=== PATIENT | female | born 1955 | race Caucasian/White ===

== ENCOUNTER 2020-03-17 12:23 | Emergency (ER) | payer MEDICARE, SELFPAY ==
--- NOTE | ~2020-03-17 | CT_ITS ---
EXAMINATION: CT facial & cervical spine wo DATE: 03/17/2020 15:17 INDICATION: Head injury. TECHNIQUE: Computed tomography (CT) of the maxillofacial region and cervical spine was performed with out intravenous contrast. Automated exposure control and iterative reconstruction technique were empl oyed. The dose-length product was 375.30 mGy-cm. COMPARISON: Cervical spine CT 10/02/2012 FINDINGS: MAXILLOFACIAL CT: There is rightward deviation of the nasal septum. No fracture. There is mild mucosal thickening in ri ght maxillary sinus. CERVICAL SPINE CT: There is 4 degrees levocurvature of cervical spine. Vertebral body heights are normal. There is moder ately decreased disc height at C3-C4, severely decreased disc height at C4-C5 and C5-C6, and moderate ly decreased disc height at C6-C7. Again seen is heterogeneity of the thyroid, consistent with multin odular goiter. The following disc levels are specifically discussed: C2-C3: There is no uncovertebral joint osteoarthritis. There is mild right facet joint osteoarthritis . There is no neural foraminal stenosis. There is no central canal stenosis. C3-C4: There is severe right and moderate left uncovertebral joint osteoarthritis. There is severe bi lateral facet joint osteoarthritis. There is mild bilateral neural foraminal stenosis. There is mild central canal stenosis. C4-C5: There is severe bilateral uncovertebral joint osteoarthritis. There is mild bilateral facet rubens int osteoarthritis. There is moderate bilateral neural foraminal stenosis. There is mild central claudia l stenosis. C5-C6: There is severe bilateral uncovertebral joint osteoarthritis. There is mild bilateral facet rubens int osteoarthritis. There is moderate bilateral neural foraminal stenosis. There is mild central claudia l stenosis. C6-C7: There is mild bilateral uncovertebral joint osteoarthritis. There is mild bilateral facet join t osteoarthritis. There is moderate bilateral neural foraminal stenosis. There is mild central canal stenosis. C7-T1: There is no uncovertebral joint osteoarthritis. There is severe bilateral facet joint osteoart hritis. There is mild bilateral neural foraminal stenosis. There is no central canal stenosis. IMPRESSION: 1. No fracture. 2. Severe cervical spondylosis. Reviewed, dictated and finalized at location A. OR INFORMATION SECURITY ARCHITECT
--- NOTE | ~2020-03-17 | XR_ITS ---
EXAMINATION: XR shoulder RT min 2V DATE: 03/17/2020 15:25 INDICATION: Right shoulder pain post fall TECHNIQUE: AP internally and externally rotated, AP oblique externally rotated and transscapular Y vi ews of the right shoulder were obtained. COMPARISON: None FINDINGS: Normal alignment. No fracture.Mild glenohumeral and acromioclavicular osteoarthritis. Mild cystic ch suzie at the cephalad aspect of the lesser tuberosity likely related to chronic rotator cuff disease. Moderate thoracic spondylosis. Visualized portions of the lungs are clear. Soft tissues are unremarka ble. IMPRESSION: No acute osseous abnormality. Reviewed, dictated and finalized at location B. TURNER
--- NOTE | ~2020-03-17 | CT_ITS ---
EXAMINATION: CT brain wo con DATE: 03/17/2020 15:17 INDICATION: Head injury. TECHNIQUE: Computed tomography (CT) of the head was performed without intravenous contrast. The mA wa s adjusted according to patient size. Iterative reconstruction technique was employed. The dose-lengt h product was 605.33 mGy-cm. COMPARISON: Head CT 10/02/2012 FINDINGS: There is no intracranial hemorrhage, acute infarction, or abnormal intracranial mass lesion . The ventricles are normal in size. The mastoid air cells are normal. The orbits are normal. The par anasal sinuses are clear. IMPRESSION: 1. Normal brain. Reviewed, dictated and finalized at location A. IOLOGY CONSULTANT IMPRESSION: 1. Normal brain.
[2020-03-17 12:46] VITALS: BP 133/53; PULSE 72; RESP 16; TEMP 36.2; O2SAT 99
--- NOTE | 2020-03-17 15:00 | ED.FALL ---
HPI - Fall General Chief Complaint: Fall Stated Complaint: fall, head injury, no loss of consciousness Time Seen by Provider: 03/17/20 14:53 Source: patient Mode of arrival: ambulatory Limitations: no limitations History of Present Illness HPI Narrative: This is a 64-year-old female that presents to the emergency department after a fall today with head injury. Reports she was running around after her dog and missed a step in her home. Reports falling forward hitting her face on the floor. Also reports landing on her right shoulder. Reports since she has had pain in the neck and right shoulder. Also reports lacerations to her lip. She is unsure of her last tetanus vaccine. Denies prodromal symptoms, loss of consciousness, vision changes, vomiting, numbness, or weakness. Related Data Home Medications Medication Instructions Recorded Confirmed triamterene 37.5 1 tablet PO QAM 01/04/19 11/30/19 mg-hydrochlorothiazide 25 mg tablet Allergies Allergy/AdvReac Type Severity Reaction Status Date / Time pseudoephedrine [Entex T] AdvReac Mild jittery/hyp Verified 03/17/20 12:53 er codeine [Guaifen-C] AdvReac Unknown jittery/hyp Verified 03/17/20 12:53 er fluticasone AdvReac Unknown sore throat Verified 03/17/20 12:53 guaifenesin AdvReac Unknown Jittery Verified 03/17/20 12:53 phenylephrine AdvReac Unknown Jittery Verified 03/17/20 12:53 phenylpropanolamine AdvReac Unknown Jittery Verified 03/17/20 12:53 salmeterol [Advair Diskus] AdvReac Unknown sore throat Verified 03/17/20 12:53 Review of Systems Review of Systems: Narrative: CONSTITUTIONAL: Denies fever EYES: Denies visual changes GASTROINTESTINAL: Denies vomiting MUSCULOSKELETAL: Reports joint pain, and myalgia. NEUROLOGIC: Reports headache. Denies numbness, or weakness. All systems reviewed & are unremarkable except as noted in HPI and below PMFSH Past Medical History Medical History (Updated 03/17/20 @ 16:35 by Aurelia Singh PA-C) Essential (primary) hypertension High serum low density lipoprotein (LDL) cholesterol Major depressive disorder, recurrent, mild Surgical History Surgical History H/O tubal ligation History of knee replacement Hx of cholecystectomy Family History Family History Mother Family history of thyroid disease Family history of cardiovascular disease Family history of glaucoma Father Diabetes mellitus Family history of malignant neoplasm Malignant neoplasm of prostate Grandparent Diabetes mellitus Other Family history of arthritis Hypertension Social History Social History Smoking status: Never smoker Second hand tobacco smoke exposure: No Alcohol intake: current Gender identity (if verbalized by the patient): Female Exam Narrative: Exam Narrative: GENERAL: Well-appearing, well-nourished, and in no acute distress. HEAD: Normocephalic. Superficial abrasion above the top lip EYES: PERRLA and EOMI. ENT: Nares clear, no rhinorrhea or epistaxis. Mucous membranes moist. Oropharynx without tonsillar hypertrophy exudate or other lesions. 1 cm linear superficial laceration of the mucosal surface of the upper lip. Bilateral TMs pearly cuello non-bulging NECK: Supple. No adenopathy or masses. No midline spinal tenderness CHEST: Clear to auscultation. No respiratory distress. No wheezes rales or rhonchi HEART: Regular rate and rhythm. No murmur heard. Normal peripheral pulses. BACK: No midline spinal tenderness EXTREMITIES: Normal range of motion. No edema or obvious deformity. Strength equal in bilateral upper and lower extremities (5/5) SKIN: Warm, dry, no rash. NEURO: No focal deficits. Alert and oriented x3. Cranial nerves II through XII grossly intact PSYCH: Normal mood and affect Course Vital Signs Vital signs: Vital Signs Temperatu
[2020-03-17] MEDS: TETANUS,DIPHTHERIA,AC PERTUSSIS ADULT (0.5 ML) BOOSTRIX IM (15:37)
== END 2020-03-17 16:44 | disposition home or self-care (01) ==
PROVIDERS: Emergency Provider Emergency Medicine; PCP Family Medicine
DX: S09.90XA Unspecified injury of head, initial encounter (principal); S01.511A Laceration without foreign body of lip, initial encounter; Z23 Encounter for immunization; I10 Essential (primary) hypertension; Z96.659 Presence of unspecified artificial knee joint; M47.812 Spondylosis without myelopathy or radiculopathy, cervical region; W10.9XXA Fall (on) (from) unspecified stairs and steps, initial encounter
CPT/HCPCS: 70450; 70486; 72125; 73030; 90471; 90715; 99284

== ENCOUNTER → 2021-01-09 01:53 | Outpatient (CLI) | payer MEDICARE, SELFPAY ==
[2021-01-09 17:56] LABS: SARS-CoV-2 RNA PCR Negative
== END ==
PROVIDERS: PCP Family Medicine; Visit Provider Family Medicine
DX: R68.89 Other general symptoms and signs (principal); Z20.822 Contact with and (suspected) exposure to COVID-19
CPT/HCPCS: C9803; U0003; U0005

== ENCOUNTER 2021-04-25 15:26 | Outpatient (CLI) | payer MEDICARE, SELFPAY ==
--- NOTE | ~2021-04-25 | MM_ITS ---
EXAMINATION: MM screening [facility] BI w yvon HISTORY: Screening TECHNIQUE: Craniocaudal and mediolateral oblique 3-D tomosynthesis images were obtained and synthetic 2-D images were generated. CAD analysis was submitted and interpreted. COMPARISON: Comparison to multiple prior studies sequentially, with oldest reviewed study dated 06/2013. BREAST PARENCHYMAL COMPOSITION: There are scattered areas of fibroglandular density. FINDINGS: Continued decreased size and benign appearing left breast mass located in the upper central breast, middle third. No new masses, calcifications or architectural distortion in either breast. Th ere is no evidence of suspicious mass, calcification, or architectural distortion to suggest malignan cy in either breast. There has been no suspicious interval change. IMPRESSION: 1. No mammographic evidence of malignancy. 2. Recommend routine screening mammography in one year. BI-RADS Category 2: Benign finding(s). Reviewed, dictated and finalized at location A. KLER
== END 2021-04-25 15:27 | disposition home or self-care (01) ==
LOC: ANHIMG 15:27
PROVIDERS: PCP Family Medicine; Visit Provider Family Medicine
DX: Z12.31 Encounter for screening mammogram for malignant neoplasm of breast (principal)
CPT/HCPCS: 77063; 77067

== ENCOUNTER 2021-08-02 13:45 | Outpatient (CLI) | payer MEDICARE, SELFPAY ==
--- NOTE | ~2021-08-02 | DEXA_ITS ---
Bone Density Report Name: DELFIN PATTON Age: 65 Sex: Female Ethnicity: White Date of : 1955 Indication: postmenopausal; screening for osteoporosis; height loss; prior fracture; Referring Provider: MARIANN SANTAMARIA Study: Bone densitometry was performed. Exam Date: August 02, 2021 Accession number: [id number] Bone Density: Region BMD T-score Z-score Classification AP Spine(L1-L4) 1.168 1.1 3.1 Normal Femoral Neck (Left) 0.706 -1.3 0.4 Osteopenia Total Hip (Left) 0.925 -0.1 1.2 Normal Femoral Neck (Right) 0.681 -1.5 0.2 Osteopenia Total Hip (Right) 0.906 -0.3 1.1 Normal Total Hip Mean 0.915 -0.2 1.2 Normal World Health Organization criteria for BMD impression classify patients as: Normal (T-score at or above -1.0), Osteopenia (T-score between -1.0 and -2.5), or Osteoporosis (T-score at or below -2.5). 10-year Fracture Risk(1): Major Osteoporotic Fracture 14% Hip Fracture 1.7% Reported Risk Factors: [place] (), Neck BMD=0.681, BMI=35.9, previous fracture (1) FRAX(R) Version 3.08. Fracture probability calculated for an untreated patient. Fracture probability may be lower if the patient has received treatment. Previous Exams: Region Exam Age BMD T-score BMD Change BMD Change Date g/cm2 vs Baseline vs Previous AP Spine (L1-L4) 08/02/2021 65 1.168 1.1 -0.055 (-4.5%) -0.055 (-4.5%) 11/28/2016 61 1.223 1.6 Total Hip(Left) 08/02/2021 65 0.925 -0.1 -0.138 (-13.0% -0.138 (-13.0% 11/28/2016 61 1.063 1.0 Total Hip(Right) 08/02/2021 65 0.906 -0.3 -0.054 (-5.6%) -0.054 (-5.6%) 11/28/2016 61 0.960 0.1 *Denotes significance at 95% confidence level, LSC for AP Spine = 0.022 g/cm2, LSC for Total Hip = 0.027 g/cm2 Clinical Information Provided by Patient: Has had a low trauma fracture Has used the following medications: Vitamin D, Calcium Patient maximum height was 63 Menopause Age: 48 Drinks caffeinated beverages Onset of menses at age 8 Number of children 2 Impression: The patient has low bone mass, based on the Right Femoral Neck T-score. The patient has an estimated ten-year risk of hip fracture of 1.7% and an estimated ten-year risk of major fracture of 14%, based on the WHO FRAX algorithm. The patient has risk factors, including: previous fracture. The BMD for the AP Spine (L1-L4) decreased, changing by -4.5% since the last DXA exam. The BMD for the Total Hip(Left) decreased, reji
== END 2021-08-02 13:46 | disposition home or self-care (01) ==
PROVIDERS: PCP Family Medicine; Visit Provider Family Medicine
DX: Z78.0 Asymptomatic menopausal state (principal); M85.852 Other specified disorders of bone density and structure, left thigh; M85.851 Other specified disorders of bone density and structure, right thigh
CPT/HCPCS: 77080

== ENCOUNTER → 2022-01-30 11:36 | Outpatient (CLI) | payer MEDICARE, SELFPAY ==
--- NOTE | ~2022-01-30 | US_ITS ---
Thyroid ultrasound. Clinical History: Thyroiditis Findings: Real-time sonography of the thyroid gland was performed. The right lobe measures 5.4 x 2.4 x 1.7 cm. The left lobe measures 5.4 x 2.2 x 1.9 cm. The isthmus is 5 mm in AP diameter. At the midportion of the isthmus, there is a 1.5 x 1.3 x 2.8 cm nodule which appears to be complex cy stic in nature, with focal area of flow on color imaging. At the mid right thyroid lobe, there is a 1.7 x 1.2 x 1.4 cm solid, hyperechoic nodule, wider than ta ll. The posterior aspect of the right midpole there is a probable 1.3 x 1.1 x 1.6 cm isoechoic solid nodule. There is a 0.5 cm hypoechoic nodule at the right midpole. Left thyroid lobe parenchyma is heterogeneous without definite, discrete nodule. Impression: 2.8 cm complex cystic nodule at the isthmus and additional 1.7 cm solid nodule at the mid right thyro id lobe, as detailed above. These lesions are TR-3 lesions, and given size, follow-up ultrasound in o ne year advised. Additional smaller thyroid nodules, as detailed above. Reviewed, dictated and finalized at location [] CING SPECIALIST Impression: 2.8 cm complex cystic nodule at the isthmus and additional 1.7 cm solid nodule at the mid right thyroid lobe, as detailed above. These lesions are TR-3 lesion s, and given size, follow-up ultrasound in one year advised. Additional smaller thyroid nodules, as detailed above.
== END ==
PROVIDERS: PCP Emergency Medicine; Visit Provider Physician Assistant
DX: E06.9 Thyroiditis, unspecified (principal); E04.2 Nontoxic multinodular goiter
CPT/HCPCS: 76536

== ENCOUNTER 2022-02-01 11:00 | Outpatient (RCR) | payer MEDICARE, SELFPAY ==
--- NOTE | 2022-01-04 11:15 | PTOPEVAL1 ---
Assessment and note entered by Zakiya Reyna DPT Evaluation Information Subjective Information Pt reports her bladder is dropping . Recent UTI. States she dribbles at times and has to void more often. Has been noticing leakage for 2-3 months. Amount is small but wears a pad at times. Urinates 6-7 times a day and 1 time at night. Denies pain with urination. Incontinence seems to be continually throughout the day, often right before voiding. Can hold urine variable amounts of time. BM usually every day, sometimes every other . Denies pain with BM. Denies history of pelvic pain. Pt has been 3 times, 2 vaginal deliveries with stitches for both. History of abnormal paps but follow ups were normal. Tubal ligation 40 years ago. Reported Pain Level Pain Score 0: Self Report Assessment PT Clinical Summary The patient is presenting to skilled therapy with a several month history of daily urinary incontinence. She presents with decreased pelvic floor strength and endurance as well as overall core weakness, which are contributing to her incontinence. She will highly benefit from therapy to address these impairments and safely reduce incontinence as well as prevent future issues such as infection etc. Plan of Care Interventions Electrical Stimulation,Hot Pack/Cold Pack,Manual Therapy,Neuro Re-education,Patient/Caregiver Education,Therapeutic Activities,Therapeutic Exercise,Self-Care/Home Management PT Services Indicated Yes Treatment Frequency and 1 time a week for 4 weeks Duration These treatments will address the objective and functional deficits as defined above. The patient will be advanced safely and appropriately in order for the patient to progress towards his/her prior level of function. Additional exercises will be introduced and as well as a comprehensive home exercise program upon discharge, if needed, ?to ensure carryover of functional gains achieved in the clinic. This treatment plan has been reviewed and agreement upon by the patient.
--- NOTE | 2022-01-08 17:49 | PCPTNOTE ---
Patient did not show up for scheduled appointment this date. Called and left voice mail about missed appointment. Reminded Pt of upcoming appointment and to call if she is unable to make appointment. This is Pt's first N/S.
--- NOTE | 2022-02-01 11:34 | PTOPDC ---
Assessment and note entered by Zakiya Reyna DPDinesh Evaluation Information Assessment Status Evaluation Subjective Information Pt reports improvements with therapy, is not dripping as much both frequency and volume. Is getting incontinence a little nereyda day but no pad use now. Urinating 8 times a day and 1 time at night. No pelvic pain. Feels comfortable discharging to [facility] now. Also reports her mom is having health issues after a fall and she is traveling back and forth to help care for her. Reported Pain Level Pain Score 0: Self Report Assessment PT Clinical Summary The patient has made good progress in therapy and reports decreased volume and frequency of incontinence. No pad use currently. She demonstrates improved core, lower extremity and pelvic floor strength. Due to her good progress and independence with [facility], plan for discharge at this time. She has been educated in a series of exercise progressions to continue improving at home, as well as when to contact MD and/or PT. Plan of Care PT Services Indicated No
== END 2022-02-04 13:30 | disposition home or self-care (01) ==
LOC: ANHPT 11:00
PROVIDERS: PCP Emergency Medicine; Visit Provider Physician Assistant
DX: R32 Unspecified urinary incontinence (principal)
CPT/HCPCS: 97110; 97112; 97161; 99199

== ENCOUNTER 2022-05-29 10:00 | Outpatient (CLI) | payer MEDICARE, SELFPAY ==
--- NOTE | ~2022-05-29 | MM_ITS ---
EXAMINATION: MM screening [facility] BI w yvon HISTORY: Screening TECHNIQUE: Craniocaudal and mediolateral oblique 3-D tomosynthesis images were obtained and synthetic 2-D images were generated. CAD analysis was submitted and interpreted. COMPARISON: 05/05/2021, 12/17/2018, 12/02/2017 bilateral screening mammogram examinations BREAST PARENCHYMAL COMPOSITION: There are scattered areas of fibroglandular density. FINDINGS: Scattered bilateral benign calcifications. There is no evidence of suspicious mass, calcifi cation, or architectural distortion to suggest malignancy in either breast. There has been no suspici ous interval change. IMPRESSION: 1. No mammographic evidence of malignancy. 2. Recommend routine screening mammography in one year. BI-RADS Category 2: Benign finding(s). Reviewed, dictated and finalized at location A.
== END 2022-05-29 10:01 | disposition home or self-care (01) ==
LOC: ANHIMG 10:03
PROVIDERS: PCP Emergency Medicine; Visit Provider Physician Assistant
DX: Z12.31 Encounter for screening mammogram for malignant neoplasm of breast (principal)
CPT/HCPCS: 77063; 77067

== ENCOUNTER → 2022-08-06 09:47 | Outpatient (CLI) | payer MEDICARE, SELFPAY ==
--- NOTE | ~2022-08-06 | CT_ITS ---
CT scan of the Neck Technique: 2.5 mm axial scans were obtained through the neck after intravenous administration of 75 c c Omnipaque 350. Coronal and sagittal reconstructions of the neck were obtained. Dose reduction techn ique was used on this scan by utilizing automated exposure control and iterative reconstruction techn ique. The dose-length product (DLP) was 344.82 mGy-cm. Clinical History: Localized swelling or mass Findings: There is a single enlarged lymph node just inferior to the left submandibular gland, and along the an teromedial margin of the left sternocleidomastoid muscle, measuring 1.6 x 1.2 x 1.9 cm (axial images 63-67, coronal image 28). No fatty hilum evident. Parapharyngeal spaces appear normal bilaterally. Th e parotid and submandibular glands appear normal. The pharyngeal mucosal spaces appear normal. No soft tissue masses are seen in the neck. Subcentimeter hypodense thyroid nodules are noted. Images of the lung apices reveal no abnormalities. Impression: Single enlarged lymph node just inferior to the left submandibular gland, measuring 1.6 x 1.2 x 1.9 c m. This is indeterminate. Neoplastic/lymphomatous etiologies are not excluded. Tissue sampling should be strongly considered to establish a histologic diagnosis. This lesion is new as compared to prior facial bone CT dated 03/17/2020. Reviewed, dictated and finalized at [facility]. Impression: Single enlarged lymph node just inferior to the left submandibular gland, measu ring 1.6 x 1.2 x 1.9 cm. This is indeterminate. Neoplastic/lymphomatous etiolog ies are not excluded. Tissue sampling should be strongly considered to establis h a histologic diagnosis. This lesion is new as compared to prior facial bone C T dated 03/17/2020.
[2022-08-06 10:10] LABS: Estimated Glomerular Filt Rate 49
== END ==
PROVIDERS: PCP Emergency Medicine; Visit Provider Physician Assistant
DX: R22.1 Localized swelling, mass and lump, neck (principal)
CPT/HCPCS: 70491; Q9967

== ENCOUNTER 2022-09-04 10:03 | Outpatient (CLI) | payer MEDICARE, SELFPAY ==
--- NOTE | ~2022-09-04 | US_ITS ---
Max ultrasound biopsy liver EXAMINATION: US biopsy lymph node DATE: 09/04/2022 10:59 INDICATION: Localized enlarged lymph nodes. TECHNIQUE: The procedure including the risks, benefits, and alternatives was discussed with the patie nt. Risks discussed included bleeding and infection. The patient understood the risks and agreed to p roceed. The skin overlying the left neck was prepped and draped in usual sterile fashion. Anesthetic was administered with 1% lidocaine subcutaneously. An 18 gauge core biopsy needle was then used to obtain 6 core biopsy specimens under continuous sonographic guidance. The entry site was cleaned and dressed. There were no immediate complications. FINDINGS: Ultrasound images demonstrate the needle in a 2.2 x 1.5 cm left high internal jugular chain node. IMPRESSION: 1. Ultrasound-guided core needle biopsy of an enlarged left neck lymph node. Reviewed, dictated and finalized at location A.
== END 2022-09-04 10:04 | disposition home or self-care (01) ==
PROVIDERS: PCP Emergency Medicine; Visit Provider Emergency Medicine
DX: R59.0 Localized enlarged lymph nodes (principal)
CPT/HCPCS: 38505; 76942; 88184; 88185; 88305; 88341; 88342; 88360

== ENCOUNTER 2023-06-07 09:13 | Outpatient (CLI) | payer MEDICARE, SELFPAY ==
--- NOTE | ~2023-06-07 | MM_ITS ---
EXAMINATION: MM screening [facility] BI w yvon HISTORY: Screening mammogram TECHNIQUE: Craniocaudal and mediolateral oblique 3-D tomosynthesis images were obtained and synthetic 2-D images were generated. CAD analysis was submitted and interpreted. COMPARISON: May 29, 2022, April 25, 2021, December 17, 2018 bilateral screening mammogram examination s BREAST PARENCHYMAL COMPOSITION: FINDINGS: There is no evidence of suspicious mass, calcification, or architectural distortion to sugg est malignancy in either breast. There has been no suspicious interval change. IMPRESSION: 1. No mammographic evidence of malignancy. 2. Recommend routine screening mammography in one year. BI-RADS Category 1: Negative Reviewed, dictated and finalized at location A.
== END 2023-06-07 09:14 | disposition home or self-care (01) ==
LOC: ANHIMG 09:14
PROVIDERS: PCP Emergency Medicine; Visit Provider Emergency Medicine
DX: Z12.31 Encounter for screening mammogram for malignant neoplasm of breast (principal)
CPT/HCPCS: 77063; 77067

== ENCOUNTER 2023-08-27 14:06 | Emergency (ER) | payer MEDICARE, SELFPAY ==
[2023-08-27 14:13] VITALS: BP 113/57; PULSE 77; RESP 16; TEMP 36.6; O2SAT 100
--- NOTE | 2023-08-27 14:20 | ED.WOUNDLAC ---
HPI - Wound/Laceration General Chief Complaint: Wound/Laceration Stated Complaint: FINGER LACERATION Time Seen by Provider: 08/27/23 14:23 Source: patient Mode of arrival: ambulatory Limitations: no limitations History of Present Illness HPI narrative: 67 y/o female presented for c/o laceration to right thumb sustained just prior to arrival, she cut the thumb on a metal can of pumpkin. Rinsed the site under the sink. Bleeding controlled on arrival. Tetanus up to date. Related Data Allergies Allergy/AdvReac Type Severity Reaction Status Date / Time pseudoephedrine [Entex T] AdvReac Mild jittery/hyp Verified 08/27/23 14:18 er codeine [Guaifen-C] AdvReac Unknown jittery/hyp Verified 08/27/23 14:18 er fluticasone AdvReac Unknown sore throat Verified 08/27/23 14:18 guaifenesin AdvReac Unknown Jittery Verified 08/27/23 14:18 phenylephrine AdvReac Unknown Jittery Verified 08/27/23 14:18 phenylpropanolamine AdvReac Unknown Jittery Verified 08/27/23 14:18 salmeterol [Advair Diskus] AdvReac Unknown sore throat Verified 08/27/23 14:18 Review of Systems Review of Systems: CONSTITUTIONAL: Denies body aches, fever, chills, or sweats. EYES: Denies visual changes, redness, or discharge. ENT: Denies rhinorrhea, congestion CARDIOVASCULAR: Denies chest pain, palpitations, or edema. RESPIRATORY: Denies cough or dyspnea. GASTROINTESTINAL: Denies abdominal pain, nausea, vomiting, or diarrhea. SKIN: reports finger lac MUSCULOSKELETAL: Denies back pain, joint pain, or myalgia. NEUROLOGIC: Denies headache, numbness, tingling, or weakness. [facility] Past Medical History Medical History COVID-07 March 2020 not bad can't smell Essential (primary) hypertension High serum low density lipoprotein (LDL) cholesterol Major depressive disorder, recurrent, mild Surgical History Surgical History H/O tubal ligation History of knee replacement Hx of cholecystectomy Status post gastric bypass for obesity grastic sleeve 2016 Family History Family History Mother Family history of thyroid disease Family history of cardiovascular disease Family history of glaucoma Father Diabetes mellitus Family history of malignant neoplasm Malignant neoplasm of prostate Grandparent Diabetes mellitus Other Family history of arthritis Hypertension Social History Social History Smoking status: Never smoker Second hand tobacco smoke exposure: No Alcohol intake: current Lack of Transportation: No Lack of Food: Never True Current Housing: I Have Housing Concerned About Future Housing: No Difficulty Paying Gas/Electric Bills: No Difficulty Paying for Meds: No Currently Unemployed: No Education: High School Diploma/GED Difficulty w/ Childcare or Family Care: No Gender identity (if verbalized by the patient): Female Comments At time of signature, I have reviewed and agree with nursing past medical, surgical, social and family history unless otherwise noted. Please see nursing chart for further information. There is no relevant family history pertinent to the presenting complaint Exam Narrative: GENERAL: Well-appearing HEAD: Normocephalic, atraumatic. EYES: conjunctivae clear, and EOMI. ENT: Mucous membranes moist. Oropharynx without edema, erythema or lesions. NECK: Supple. No lymphadenopathy CHEST: Clear to auscultation. HEART: Regular rate and rhythm. SKIN: Warm, dry. Right thumb with approx 0.5cm linear laceration, well approximated bleeding controlled. No nail involvement. NEURO: Alert and oriented x3. Course Course Emergency Course: Patient is aware of diagnosis, understands and agrees to treatment plan. Anticipatory guidance given. Patient agrees to follow-up as directed
== END 2023-08-27 14:37 | disposition home or self-care (01) ==
PROVIDERS: Emergency Provider Nurse Practitioner Family; PCP Emergency Medicine
DX: S61.011A Laceration without foreign body of right thumb without damage to nail, initial encounter (principal); W45.8XXA Other foreign body or object entering through skin, initial encounter; I10 Essential (primary) hypertension; Z86.16 Personal history of COVID-19; Z98.84 Bariatric surgery status
CPT/HCPCS: 12001; 99212; G0463

== ENCOUNTER 2024-06-07 14:09 | Outpatient (CLI) | payer MEDICARE, SELFPAY ==
--- NOTE | ~2024-06-07 | US_ITS ---
EXAMINATION: US thyroid DATE: 06/07/2024 14:26 INDICATION: Nontoxic multinodular goiter TECHNIQUE: Multiple ultrasound images of the thyroid were obtained. COMPARISON: 01/30/2022. FINDINGS: The right thyroid lobe measures 4.4 x 2.5 x 2.1 cm. The left thyroid lobe measures 4.1 x 2.2 x 1.9 c m. No significant change in a couple predominantly solid wider than tall hyperechoic nodules with sm ooth to ill-defined margins and without echogenic foci in the right thyroid lobe, both measuring 1.5 cm in maximal diameter (TI-RADS 3, mildly suspicious , FNA if >=2.5 cm, annual followup is >=1.5 cm) . There is a 2.2 cm predominant solid hypoechoic nodule with lobular margins and without echogenic f oci in the left thyroid lobe (TI-RADS 4, moderately suspicious , FNA if >=1.5 cm, annual followup is >=1 cm). There is normal echotexture, echogenicity and vascular flow throughout the remainder of the thyroid gland. IMPRESSION: 1. Multinodular goiter. Recommend ultrasound-guided biopsy of the 2.2 cm Ti RADS 4 left thyroid nodul e. Reviewed, dictated and finalized at location A. IMPRESSION: 1. Multinodular goiter. Recommend ultrasound-guided biopsy of the 2.2 cm Ti RAD S 4 left thyroid nodule.
== END 2024-06-07 14:10 | disposition home or self-care (01) ==
PROVIDERS: PCP Family Medicine; Visit Provider Family Medicine
DX: E04.2 Nontoxic multinodular goiter (principal)
CPT/HCPCS: 76536

== ENCOUNTER 2024-07-09 08:24 | Outpatient (CLI) | payer MEDICARE, SELFPAY ==
--- NOTE | ~2024-07-09 | MM_ITS ---
EXAMINATION: MM screening oscar BI w yvon HISTORY: Screening TECHNIQUE: Craniocaudal and mediolateral oblique 3-D tomosynthesis images were obtained and synthetic 2-D images were generated. CAD analysis was submitted and interpreted. COMPARISON: Comparison to multiple prior studies sequentially, with oldest reviewed study dated 11/17. BREAST PARENCHYMAL COMPOSITION: Dense: The breasts are heterogeneously dense, which may obscure small masses FINDINGS: There is no evidence of suspicious mass, calcification, or architectural distortion to sugg est malignancy in either breast. There has been no suspicious interval change. IMPRESSION: 1. No mammographic evidence of malignancy. 2. Recommend routine screening mammography in one year. BI-RADS Category 1: Negative Reviewed, dictated and finalized at location []
--- OUTSIDE RECORDS SUMMARY | 2024-07-09 08:28 | XMS_ITS | Clinical Summary ---
Author Organization [facility] Address 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 This disclosure is being madepursuant to the Care Everywhere program and may not contain all information available regarding this patient. Last updated 17.[facility] Cross Current Social History Tobacco Use Types Packs/Day Years Used Date Smoking Tobacco: Never Assessed Comments Unknown Sex and Gender Information Value Date Recorded Sex Assigned at Unknown 09/04/2022 1:55 PM CDT Legal Sex Female 1:51 PM CDT Gender Identity Choose not to disclose 1:55 PM CDT Sexual Orientation Don't know 09/04/2022 1: 55 PM CDT Plan of Treatment Health Maintenance Due Date Last Done Comments BONE DENSITY TESTING 1955 COLOGUARD (AGES 45-75) - COL ON CA SCREENING 1955 COLON MONITORING 1955 COLONOSCOPY - COLON CA SCREENING 1955 CT COLONOGRAPHY - COLON CA SCREENING 1955 Colorectal Cancer Screening 1955 FIT - COLON CA SCREENING 1955 FLEX SIG - COLON CA SCREENING 1955 LIPID TESTING 1955 MAMMOGRAM 1955 HEPATITIS C SCREENING 10/19/1971 DTAP/TDAP/TD VACCINES (1 - Tdap) 1972 PNEUMOCOCCAL VACCINE 50+ (1 of 1 - PCV) 10/24/2003 ZOSTER VACCINE (1 of 2) 10/24/2003 COVID-19 VACCINE (2023-2 5 season) 2023 DEPRESSION SCREENING 02/18/2024 MEDICARE AWV CALENDAR YEAR 2024 INFLUENZA VACCINE (Season Ended) 2024 Respiratory Syncytial Virus (RSV) Vaccine Pt: or over 60 yrs (1 - 1-dose 75+ series) 2028 HEPATITIS B VACCINE Aged Out No longe r eligible based on patient's age to complete this topic HIB VACCINE Aged Out No longer eligi ble based on patient's age to complete this topic HPV VACCINE Aged Out No longer eligi ble based on patient's age to complete this topic MENINGOCOCCAL (Group B) VACC INE SHARED DECISION-MAKING Aged Out No longer eligibl e based on patient's age to complete this topic MENINGOCOCCAL GROUPS A/C/Y/W VACCINE Aged Out No longer eligible b ased on patient's age to complete this topic Insurance AETNA MEDICARE ADV AET MEDICARE ADV
--- OUTSIDE RECORDS SUMMARY | 2024-07-09 08:28 | XMS_ITS | Encounter Summary ---
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 Role Phone Unavailable Primary Care Provider Unavailabl e Encounter Details Date Type Department Care Team (Late st Contact Info) Description 09/04/2022 Lab Requisition [facility] - Pathology Lab [address] [place] [address] Social History Tobacco Use Types Packs/Day Years Used Date Smoking Tobacco: Never Assessed Comments Unknown Sex and Gender Information Value Date Recorded Sex Assigned at Unknown 09/04/2022 1:55 PM CDT Legal Sex Female 1:51 PM CDT Gender Identity Choose not to disclose 1:55 PM CDT Sexual Orientation Don't know 09/04/2022 1: 55 PM CDT documented as of this encounter Plan of Treatment Not on file documented as of this encounter Visit Diagnoses Not on filedocumented in this encounter
--- OUTSIDE RECORDS SUMMARY | 2024-07-09 08:28 | XMS_ITS | Encounter Summary ---
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 Role Phone Unavailable Primary Care Provider Unavailabl e Encounter Details Date Type Department Care Team (Late st Contact Info) Description 09/04/2022 Lab Requisition [facility] - Pathology Lab [address] [place] [address] Lizet Askew MD [facility] [address] [address] Localized enlarged lymph nodes Social History Tobacco Use Types Packs/Day Years [...] on file documented as of this encounter Procedures Procedure Name Priority Date/Time Associated Diagnosis Comments FLOW CYTOMETRY TISSUE PANEL Routine 09/04/2022 10:44 AM CDT Localized enlarged lymph nodes documented in this encounter Results * FLOW CYTOMETRY TISSUE PANEL (09/04/2022 10:44 AM CDT) Case Report Flow Cytometry Case: [id number] Authorizing Provider: Lizet Askew MD Collected: 09/04/2022 10:44 AM Ordering Location: [facility] Care Pathology Lab Received: 09/04/2022 02:16 PM Pathologist: Michael Duarte MD Specimen: Lymph Node, SUBMANDIBULAR 3 4:51 PM [facility] PATHOLOG[facility] Final Diagnosis Lymph node, submandibular, flow cytometry: - Paucicellular specimen with apparent clonal B-cell population detected 3 4:51 PM T [facility] PATHOLOGY LAB at 1651 CDT Flow Cytometry Interpretation The flow cytometry of the lymph node is paucicellular at 200 cells per microliter. Most of the events represent lymphocytes of which 53% are clonal lambda light chain restricted CD19+, CD20+ B-cells with CD10 co-expression. This may represent a large B-cell, Burkitt, or follicular lymphoma. Histologic sections are pending. The CD3+ T-cell events are immunophenotypically normal with a CD4:CD8 ratio of 1.3:1. The cytospin prepared from the flow cytometry specimen is reviewed for quality management coordinator purposes. 3 4:51 PM [facility] PATH[facility] Flow Cytometry Results Differential Result Comment Flow Cell Count /uL 200 Total Viability % 80.0 Lymphocytes % 98 Dim CD45 Region % 0 Monocytes % 0 Granulocytes % 2 3 4:51 PM T [facility] PATHOLOGY [facility] Reason for test Localized enlarged lymph nodes 785.6 3 4:51 PM T [facility] PATHOLOGY LAB Client Specimen ID # [id number] 3 4:51 PM [facility] PATH[facility] Number of markers 16 were performed. A-1 Flow CD3 A-3 Flow CD10 A-5 Flow CD20 A-6 Flow CD23 A-11 Flow CD2 A-12 Flow CD3 A-13 Flow CD4 A-17 Flow CD1a A-2 Flow CD5 A-4 Flow CD19 A-7 Flow CD34 A-8 Flow CD45 A-14 Flow CD5 A-15 Flow CD7 A-16 Flow CD8 A-18 Flow CD30 A-9 [place]+CD19+ A-10 Lambda+CD19+ 3 4:51 PM CDT [facility] PATH[facility] Pathologist Location at [facility] 3 4:51 PM [facility] PATH[facility] LAB Disclaimer Test performed at [facility], [address] [place] [address], [id number]. *The established laboratory minimum viability is 70%. Values below the minimum may result in the failure to find an abnormal population of cells. This test was developed and its performance characteristics determined by the Flow Cytometry Laboratory. It has not been cleared by the [place] Food and Drug Administration (FDA). The FDA has determined that such clearance or approval is not necessary. This test is used for clinical purposes. It should not be regarded as investigational or for research. This laboratory is regulated under the Clinical Laboratory Improvement Amendments of 1998 (CLIA) as a qualified to perform high complexity clinical testing. 3 4:51 PM CDT [facility] PATHOLOGY LAB Embedded Images 3 4:51 PM CDT [facility] PATHOLOGY LAB Pathology/Cytolo gy ENTIRE LYMPH NODE / Unknown 09/04/2022 10:44 AM CDT 09/04/2022 2:16 PM CDT Lizet Askew MD LAB - PATHOLOGY/CYTOLOGY ORDERAB LES Final Result [facility] PATHOLOGY LAB [address] [facility] [place] [address], [facility] [phone] documented in this encounter Visit Diagnoses Diagnosis Localized enlarged lymph nodes Enlargement of lymph nodes documented in this encounter
--- OUTSIDE RECORDS SUMMARY | 2024-07-09 08:28 | XMS_ITS | Encounter Summary ---
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 Role Phone Unavailable Primary Care Provider Unavailabl e Encounter Details Date Type Department Care Team (Late st Contact Info) Description 09/05/2022 Lab Requisition [facility] - Pathology Lab [address] [place] [address] Lizet Askew MD [facility] [address] [address] Illness, unspecified Social History Tobacco Use Types Packs/Day Years [...] Procedure Name Priority Date/Time Associated Diagnosis Comments PATHOLOGY TISSUE Routine 09/04/2022 10:4 4 AM CDT Illness, unspecified documented in this encounter Results * PATHOLOGY TISSUE (09/04/2022 10:44 AM CDT) Case Report Surgical Pathology Report Case: [id number] Authorizing Provider: Lizet Askew MD Collected: 09/04/2022 10:44 AM Ordering Location: [facility] Pathology Lab Received: 09/05/2022 03:56 PM Pathologist: Michael Duarte MD Specimen: Lymph Node Biopsy, left submandibular lymph node bx 09/06/2022 3:19 PM [facility] PATHOLOGY LAB Final Diagnosis Left submandibular lymph node, biopsy: - Tiny piece of lymphoid tissue, suspicious for B-cell lymphoma 09/06/2022 3:19 PM [facility] PATHOLOGY LAB at 1519 CDT Microscopic Description and Comment The histologic section of the lymph node biopsy shows a small piece of lymphoid tissue (0.2 X 0.1 cm) showing medium to larger sized lymphoid cells. No necrosis is appreciated. Immunohistochemistry is performed to assess staining cells in an architectural context: Most of the lymphoid infiltrate stains positively for CD20 with only few background CD3+ T-cells. CD21 highlights retained dendritic cell meshwork and B-cells within this meshwork also stain for BCL6 and CD10. BCL-2 is negative on these cells, and Ki-67 shows a proliferation index of 60-70%. C-MYC and MCK (cytokeratin) are negative. Unfortunately, the biopsy is too small for architectural evaluation and final diagnosis. The immunohistochemistry performed on this tissue is not conclusive for a firm diagnosis of B-cell lymphoma (despite the flow cytometry findings of an apparent clonal lambda light chain restricted B-cell population), since this immunophenotype can also be seen in florid follicular hyperplasia. An excisional biopsy is recommended. 09/06/2022 3:19 PM [facility] PATH[facility] Clinical History Neck mass. 09/06/2022 3:19 PM [facility] PATH[facility] AP Comment Lymph node, submandibular, flow cytometry ([id number]): - Paucicellular specimen with apparent clonal B-cell population detected 09/06/2022 3:19 PM [facility] PATH[facility] Materials Received Received are 7 slide(s), and 1 block (A1) labeled [id number] along with a copy of the outside pathology report. [place] [address]. All original materials are returned to the referring institution, along with a copy of our final report. 09/06/2022 3:19 PM [facility] PATH[facility] Pathologist Location at [facility] 09/06/2022 3:19 PM CDT [facility] Disclaimer The performance characteristics of all immunohistochemical and indirect immunofluorescence stains (if any) cited in this report were determined by the Histopathology Laboratory of [facility]. Some of these tests were developed by our own laboratory and have not been cleared or approved by the US Food and Drug Administration. The FDA does not require this test to go through premarket FDA review. These tests are used for clinical purposes. They should not be regarded as investigational or for research. This laboratory is certified under the Clinical Laboratory Improvement Amendments (CLIA) as qualified to perform high complexity clinical laboratory testing. This case has been personally reviewed and interpreted by the attending (teaching) pathologist. 09/06/2022 3:19 PM CDT [facility] Embedded Images 09/06/2022 3:19 PM T [facility] Pathology/Cytolo gy BIOPSY OF LYMPH NODE / Unknown 09/04/2022 10:44 AM CDT 09/05/2022 3:56 PM CDT Lizet Askew MD LAB - PATHOLOGY/CYTOLOGY ORDERAB LES Final Result [facility] [address] [place], [place] [id number] [place] [address] documented in this encounter Visit Diagnoses Diagnosis Illness, unspecified documented in this encounter
== END 2024-07-09 08:25 | disposition home or self-care (01) ==
LOC: ANHIMG 08:25
PROVIDERS: PCP Family Medicine; Visit Provider Nurse Practitioner Family
DX: Z12.31 Encounter for screening mammogram for malignant neoplasm of breast (principal)
CPT/HCPCS: 77063; 77067

== ENCOUNTER 2024-12-31 09:44 | Outpatient (CLI) | payer MEDICARE, SELFPAY ==
--- NOTE | ~2024-12-31 | DEXA_ITS ---
Bone Density Report Name: DELFIN PATTON Age: 69 Sex: Female Ethnicity: White Date of : 1955 Indication: postmenopausal; screening for osteoporosis; parental hip fracture; height loss; cancer; asthma or emphysema; Referring Provider: MITZI ROMANO Study: Bone densitometry was performed. Exam Date: December 31, 2024 Accession number: [id number] Bone Density: Region BMD T-score Z-score Classification AP Spine(L1-L4) 1.065 0.2 2.3 Normal Femoral Neck (Left) 0.665 -1.7 0.2 Osteopenia Total Hip (Left) 0.836 -0.9 0.7 Normal Femoral Neck (Right) 0.613 -2.1 -0.3 Osteopenia Total Hip (Right) 0.785 -1.3 0.3 Osteopenia Total Hip Mean 0.811 -1.1 0.5 Osteopenia World Health Organization criteria for BMD impression classify patients as: Normal (T-score at or above -1.0), Osteopenia (T-score between -1.0 and -2.5), or Osteoporosis (T-score at or below -2.5). 10-year Fracture Risk(1): Major Osteoporotic Fracture 20% Hip Fracture 6.4% Reported Risk Factors: [place] (), Neck BMD=0.613, BMI=25.8, parental fracture (1) FRAX(R) Version 3.08. Fracture probability calculated for an untreated patient. Fracture probability may be lower if the patient has received treatment. Previous Exams: -- Region Exam Age BMD T-score BMD Change BMD Change Date g/cm2 vs Baseline vs Previous -- AP Spine (L1-L4) 12/31/2024 69 1.065 0.2 -8.8%* -8.8%* 08/02/2021 65 1.168 1.1 Total Hip(Left) 12/31/2024 69 0.836 -0.9 -9.6%* -9.6%* 08/02/2021 65 0.925 -0.1 Total Hip(Right) 12/31/2024 69 0.785 -1.3 -13.3%* -13.3%* 08/02/2021 65 0.906 -0.3 -- *Denotes significance at 95% confidence level, LSC for AP Spine = 0.022 g/cm2, LSC for Total Hip = 0.027 g/cm2 Clinical Information Provided by Patient: Parent has had a hip fracture Has used the following medications: Vitamin D Has the following medical conditions: Asthma or Emphysema, Cancer, lymphoma Patient maximum height was 64 Menopause Age: 48 No regular weight bearing exercise Drinks caffeinated beverages Onset of menses at age 7 Number of children 2 Impression: The patient has low bone mass, based on the Right Femoral Neck T-score. The patient has an estimated ten-year risk of hip fracture of 6.4% and an estimated ten-year risk of major fracture of 20%, based on the WHO FRAX algorithm. The patient has risk factors, including: parental hip fracture. The BMD for the AP Spine (L1-L4) decreased, changing by -8.8% since the last DXA exam. The BMD for the Total Hip(Left) decreased, changing by -9.6% since the last DXA exam. The BMD for the Total Hip(Right) decreased, changing by -13.3% since the last DXA exam. Discussion: BONE DENSITY IS LOW AT ONE OR MORE SKELETAL SITES. THE PATIENT'S BMD AND CLINICAL RISK FACTORS CONTRIBUTE TO THIS PATIENT'S HIGH RISK OF FRACTURE. This patient's lowest T-score is low at one or more skeletal sites. It meets the World Health Organization's (WHO) criteria for ?low bone mass? (T-score between -1.0 and -2.5). The patient's 10-year risk of hip fracture and 10 year risk of a major osteoporotic fracture as calculated by FRAX exceeds the threshold where pharmacological therapy is recommended by the National Osteoporosis Foundation (NOF). However, all treatment decisions require clinical judgment and consideration of individual patient factors, including patient preferences, comorbidities, previous drug use, risk factors not captured in the FRAX model (e.g., frailty, falls, vitamin D deficiency, increased bone turnover, interval significant decline in bone density) and possible under or overestimation of fracture risk by FRAX. The patient should follow a healthful lifestyle (good nutrition with adequate calcium and vitamin D, and appropriate weight-bearing exercise). Follow-Up: Consider a repeat BMD and Vertebral Fracture Assessment (VFA) exam in 2 years or sooner if medically necessary, to reassess this patient's status. Reported by: DELVIN on 12/31/2024 10:03:00 AM. Reviewed, dictated and finalized at location A.
== END 2024-12-31 09:45 | disposition home or self-care (01) ==
LOC: MICIMG 09:44
PROVIDERS: PCP Family Medicine; Visit Provider Student in an Organized Health Care Education/Training Program
DX: Z78.0 Asymptomatic menopausal state (principal); M85.851 Other specified disorders of bone density and structure, right thigh; M85.852 Other specified disorders of bone density and structure, left thigh
CPT/HCPCS: 77080